=== PATIENT | male | born 1945 | race Caucasian/White ===

== ENCOUNTER 2022-09-26 13:19 | Emergency (ER) | payer OTHER ==
[~2022-09-26] VITALS: Ht 172.7 cm; Wt 103.5 kg
[2022-09-26] MEDS ORDERED: FAMO20TA PO (13:28)
[2022-09-26] MEDS ORDERED: NAPR-885 PO (13:28)
[2022-09-26] MEDS ORDERED: ATOR1TAB21 PO (13:28)
[2022-09-26] MEDS ORDERED: METF-877 PO (13:28)
[2022-09-26] MEDS ORDERED: NITROGLYCERIN 0.4MG SUBL TABLET SL PRN (13:40)
[2022-09-26] MEDS ORDERED: ASPIRIN 81MG CHEW TABLET PO ONE ×2 (13:40→16:15)
[2022-09-26 14:06] LABS: BASO % 0.4 % (0.0-1.0); EOS # 0.1 10^3/uL (0.0-0.5); EOS % 1.8 % (0.0-3.0); HEMATOCRIT 46.3 % (42.0-52.0); HEMOGLOBIN 14.7 g/dl (13.5-17.5); LYMPH # 1.4 10^3/uL (1.5-5.0); MEAN CORPUSCULAR HEMOGLOBIN 27.6 pg (27.0-33.0); MEAN CORPUSCULAR HGB CONC 31.7 g/dl (32.0-36.5); MEAN CORPUSCULAR VOLUME 86.9 fl (80.0-96.0); MONO # 0.7 10^3/uL (0.0-0.8); MONO % 8.2 % (2.0-8.0); NEUTROPHILS # 5.8 10^3/uL (1.5-8.5); NEUTROPHILS % 72.3 % (36.0-66.0); PLATELET COUNT, AUTOMATED 229 10^3/uL (150-450); RED BLOOD COUNT 5.33 10^6/uL (4.30-6.10)
[2022-09-26 14:07] VITALS: BP 141/80
[2022-09-26 14:25] LABS: LIPASE 39 U/L (12-53)
[2022-09-26 14:28] LABS: ALBUMIN 3.8 G/DL (3.2-5.2); ALKALINE PHOSPHATASE 131 U/L (46-116); ALT/SGPT 14 U/L (7.0-40); AST/SGOT 13 U/L (<34); BILIRUBIN,DIRECT 0.6 MG/DL (<0.4); BILIRUBIN,TOTAL 1.6 MG/DL (0.3-1.2); BLOOD UREA NITROGEN 16 MG/DL (9-23); CARBON DIOXIDE LEVEL 28 MMOL/L (20-31); CHLORIDE LEVEL 106 MMOL/L (98-107); CPK CREATINE PHOSPHOKINASE 69 U/L (46-171); GLOMERULAR FILTRATION RATE > 60.0 (>42); GLUCOSE, FASTING 115 MG/DL (74-106); MB/CK RELATIVE INDEX 1.44 (< OR =4); POTASSIUM SERUM 4.1 MMOL/L (3.5-5.1); SODIUM LEVEL 142 MMOL/L (136-145); TOTAL PROTEIN 6.9 G/DL (5.7-8.2)
[2022-09-26 14:31] LABS: THYROID STIMULATING HORMONE 5.371 uIU/ML (0.55-4.78)
[2022-09-26] MEDS ORDERED: ISOVUE-370 76% 100ML VIAL As Ordered ONE (14:43)
[2022-09-26 15:56] LABS: MB/CK RELATIVE INDEX 1.69 (< OR =4)
[2022-09-26] MEDS ORDERED: CLOPIDOGREL 300 MG TAB (PLAVIX) PO ONE (16:15)
[2022-09-26] MEDS ORDERED: FUROSEMIDE 20MG/2ML VIAL IV ONE (16:25)
[2022-09-26] MEDS ORDERED: HOME MED LIST COMPLETE! XX SCH (17:10)
[2022-09-26 17:29] LABS: MB/CK RELATIVE INDEX 1.66 (< OR =4)
[2022-09-26 18:00] VITALS: TEMP 97.8
[2022-09-26 18:01] VITALS: O2SAT 93
[2022-09-26 18:13] VITALS: BP 152/97
== END 2022-09-26 18:36 | disposition short-term general hospital (02) ==
LOC: M ED 13:19
DX: R07.9 Chest pain, unspecified (principal); I50.22 Chronic systolic (congestive) heart failure; R74.8 Abnormal levels of other serum enzymes; R00.0 Tachycardia, unspecified; I49.49 Other premature depolarization; E78.5 Hyperlipidemia, unspecified; I10 Essential (primary) hypertension; E11.9 Type 2 diabetes mellitus without complications; Z88.8 Allergy status to other drugs, medicaments and biological substances; Z87.891 Personal history of nicotine dependence; Z79.02 Long term (current) use of antithrombotics/antiplatelets; Z79.4 Long term (current) use of insulin; Z79.899 Other long term (current) drug therapy
CPT/HCPCS: 71045; 71275; 80048; 80076; 82550; 82553; 83690; 83880; 84443; 84484; 85025; 87040; 87486; 87581; 87633; 87798; 93005; 93041; 94760; 96374; 99285; J1940; Q9967